=== PATIENT | female | born 1970 | race African-American/Black ===

== ENCOUNTER 2018-03-16 | Emergency (ER) | payer SELFPAY ==
--- OUTSIDE RECORDS SUMMARY | 2018-03-16 12:28 | XMS REPORT | Clinical Summary ---
:1970 Author Organization [facility] Address [address] [place] [address] Care Team Providers Name Role Phone Vasu Rubio MD Primary Care Provider Allergies Active Allergy Reactions Severity Noted Date Comments Lisinopril Anaphylaxis High 03/06/2017 Current Medications Prescription Sig. Disp. Refills Start Date End Date Status albuterol (PROAIR Inhale 1-2 puffs 1 Inhaler 0 03/06/2017 04/05/2017 HFA,PROVENTIL every 6 (six) HFA,VENTOLIN HFA) 90 hours as needed mcg/actuation inhaler for wheezing for up to 30 days. Active Problems Not on file Social History Tobacco Use Types Packs/Day Years Used Date Never Smoker Alcohol Use Drinks/Week oz/Week Comments No Sex Assigned at Date Recorded Not on file Last Filed Vital Signs Not on file Plan of Treatment Health Maintenance Due Date Last Done Comments PAP SMEAR 1990 INFLUENZA VACCINE 07/01/2018 Results Not on fileafter 03/15/2017
--- NOTE | 2018-03-16 14:25 | EDPHYS ---
Physician Documentation [facility] Name: Odalys Meyer Age: 47 yrs Sex: Female : 1970 Arrival Date: 03/16/2018 Time: 12:24 Bed 18 Private MD: ED Physician Monroe Cochran HPI: 03/16 14:17 This 47 yrs old Black Female presents to ER via Ambulatory with complaints of Headache. ps1 14:17 The patient complains of pain to the right cheek and left cheek. The patient describes ps1 the headache as sinus pressure. . Onset: The symptoms/episode began/occurred 3 day(s) ago. Associated signs and symptoms: Pertinent positives: sinus congestion, sinus tenderness, Pertinent negatives: altered mental status, dizziness, Photophobia vomiting. Severity of symptoms: At its worst the pain was mild. Headache History: Denies prior headaches. The patient has experienced similar episodes in the past. presents because she is out of her chlorthiazide and has not filled her medication for months. Went to nurse at work and was sent because her BP was elevated. She does not have symptoms associated with her headache and essentially wants a refill because the previous doctors that she has used have moved and the other . Has not established care otherwise. . 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 - Social history:: Smoking status: Patient/guardian denies using tobacco. ROS: 14:17 Constitutional: Negative for fever, chills, and weight loss, Eyes: Negative for injury, ps1 pain, redness, and discharge. 14:17 ENT: Positive for sinus congestion. 14:17 Cardiovascular: Negative for chest pain, palpitations, and edema, Respiratory: Negative ps1 for shortness of breath, cough, wheezing, and pleuritic chest pain, Abdomen/GI: Negative for abdominal pain, nausea, vomiting, diarrhea, and constipation, MS/Extremity: Negative for injury and deformity, Skin: Negative for injury, rash, and discoloration, Neuro: Negative for headache, weakness, numbness, tingling, and seizure. Exam: 14:17 Constitutional: This is a well developed, well nourished patient who is awake, alert, ps1 and in no acute distress. Head/Face: Normocephalic, atraumatic. Eyes: Pupils equal round and reactive to light, extra-ocular motions intact. Lids and lashes normal. Conjunctiva and sclera are non-icteric and not injected. Neck: Trachea midline, no thyromegaly or masses palpated, and no cervical lymphadenopathy. Supple, full range of motion without nuchal rigidity, or vertebral point tenderness. No Meningismus. Chest/axilla: Normal chest wall appearance and motion. Nontender with no deformity. No lesions are appreciated. Cardiovascular: Regular rate and rhythm. No gallops, murmurs, or rubs. Normal PMI, no JVD. No pulse deficits. Respiratory: Lungs have equal breath sounds bilaterally, clear to auscultation and percussion. No rales, rhonchi or wheezes noted. No increased work of breathing, no retractions or nasal flaring. Abdomen/GI: Soft, non-tender, with normal bowel sounds. No distension or tympany. No guarding or rebound. No evidence of tenderness throughout. Skin: Warm, dry with normal turgor. Normal color with no rashes, no lesions, and no evidence of cellulitis. MS/ Extremity: Pulses equal, no cyanosis. Neurovascular intact. Full, normal range of motion. Neuro: Awake and alert, GCS 15, oriented to person, place, time, and situation. Cranial nerves II-XII grossly intact. Sensory grossly intact. Psych: Awake, alert, with orientation to person, place and time. Behavior, mood, and affect are within normal limits. Vital Signs: 13:08 BP 185 / 118; Pulse 86; Resp 16; Temp 97.0(TE); Pulse Ox 97% on R/A; Weight 92.08 kg lk1 (R); Height 5 ft. 7 in. (170.18 cm) (R); Pain 5/10; 13:08 Body Mass Index 31.79 (92.08 kg, 170.18 cm) lk1 MDM: 14:17 Data reviewed: vital signs, nurses notes. ED course: Pt with otherwise established ps1 hypertension presenting out of medications. She additionally has sinus congestion. Here because work made her get BP medications prior to work. Will refill and have establish a primary care provider. . 14:25 Patient medically screened. ps1 Administered Medications: No medications were administered Disposition: 03/16/18 14:25 Discharged to Home. Impression: Asymptomatic hypertension, Sinus congestion. - Condition is Stable. - Discharge Instructions: Hypertension, Sinus Headache. - Prescriptions for Hydrochlorothiazide 50 mg Oral Tablet - take 1 tablet by ORAL route once daily; 30 tablet. chlorpheniramine maleate 4 mg Oral Tablet - take 1 tablet by ORAL route every 4-6 hours As needed; 30 tablet. - Medication Reconciliation Form, Thank You Letter, Antibiotic Education, Prescription Opioid Use form. - Follow up: Private Physician; When: As needed; Reason: Recheck today's complaints, Continuance of care, Re-evaluation by your physician. Follow up: Emergency Department; When: As needed; Reason: Worsening of condition. - Problem is an ongoing problem. - Symptoms are unchanged. Signatures: Gabriella Knott RN RN Irene Sagastume RN RN lk1 Monroe Cochran MD MD ps1
--- NOTE | 2018-03-16 14:25 | ER ---
Nurse's Notes [facility] Name: Odalys Meyer Age: 47 yrs Sex: Female : 1970 Arrival Date: 03/16/2018 Time: 12:24 Bed 18 Private MD: Diagnosis: Asymptomatic hypertension;Sinus congestion Presentation: 03/16 13:04 Presenting complaint: Patient states: "I have a sinuses killing me and my blood lk1 pressure has been up. I did a physical and it went up high. I need my forms signed to get cleared to work.". Transition of care: patient was not received from another setting of care. Onset of symptoms is unknown. Initial Sepsis Screen: Does the patient meet any 2 criteria? No. Patient's initial sepsis screen is negative. Does the patient have a suspected source of infection? No. Patient initial sepsis screen negative. Care prior to arrival: None. 13:04 Method Of Arrival: Ambulatory lk1 13:04 Acuity: KERRY 4 lk1 Triage Assessment: 13:08 Headache History: Denies prior headaches. General: Appears in no apparent distress. lk1 Behavior is calm, cooperative, appropriate for age. Pain: Complains of pain in head Pain currently is 5 out of 10 on a pain scale. Pain began 2-3 days ago. Also complains of no other associated symptoms. Neuro: Level of Consciousness is awake, alert, obeys commands, Oriented to person, place, time, situation. 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 - Social history:: Smoking status: Patient/guardian denies using tobacco. Screenin:37 Abuse screen: Denies threats or abuse. Denies injuries from another. Nutritional ph screening: No deficits noted. Tuberculosis screening: No symptoms or risk factors identified. Fall Risk None identified. Assessment: 14:00 General: Appears in no apparent distress. comfortable, Behavior is calm, cooperative, ph appropriate for age, Denies fever, feeling ill. Pain: Complains of pain in head. Neuro: Level of Consciousness is awake, alert, obeys commands, Oriented to person, place, time, situation, Reports headache Denies blurred vision dizziness. Cardiovascular: Capillary refill < 3 seconds Patient's skin is warm and dry. Respiratory: Airway is patent Respiratory effort is even, unlabored. EENT: Reports nasal congestion. Derm: Skin is intact, is healthy with good turgor, Skin is pink, warm \\T\\ dry. Musculoskeletal: Circulation, motion, and sensation intact. Range of motion: intact in all extremities. Vital Signs: 13:08 BP 185 / 118; Pulse 86; Resp 16; Temp 97.0(TE); Pulse Ox 97% on R/A; Weight 92.08 kg lk1 (R); Height 5 ft. 7 in. (170.18 cm) (R); Pain 5/10; 13:08 Body Mass Index 31.79 (92.08 kg, 170.18 cm) lk ED Course: 12:24 Patient arrived in ED. as 13:06 Triage completed. lk1 13:10 Arm band placed on right wrist. lk1 14:06 Monroe Cochran MD is Attending Physician. ps1 14:07 Gabriella Knott RN is Primary Nurse. ph 14:37 Patient has correct armband on for positive identification. Bed in low position. Call ph light in reach. Pulse ox on. NIBP on. Warm blanket given. 14:37 No provider procedures requiring assistance completed. Patient did not have IV access ph during this emergency room visit. Administered Medications: No medications were administered Outcome: 14:25 Discharge ordered by . ps1 14:56 Patient left the ED. ph Signatures: Makenna Patton as Gabriella Knott, RN RN ph Irene Sagastume, NADEGE RN lk Monroe Cochran MD MD ps1
== END 2018-03-16 14:56 | disposition home or self-care (01) ==
CPT/HCPCS: 99282